=== PATIENT | female | born 1960 | race African-American/Black ===

== ENCOUNTER → 2016-12-19 | Outpatient (CLI) | payer BC ==
[~2016-12-19] MED LIST: AMLODIPINE BESY10 MG OR; CALCIUM 600 +1 EAC1 PO; CARAFATE 1 GM TA1 G1 PO; CIPROFLOXACIN500 M1 OR; CREON 10 CAPSUL1 CA1 PO; CRESTOR20 MG PO; DARVOCET-N 1001 EACH PO; DURAGESIC25 MCG/HR TRANSDERM; ESTRACE2 MG PO; FISHOIL PO; HYDROCODON-ACE1 EAC7 PO; IBUPROFEN 400400 M1 PO; LIPITOR10 MG PO; LOPRESSOR25 PO; LORTAB 5 MG/5001 TA1 PO; MACROBID 100 M100 M1 PO; MUSCLE RELAXER; NICOTINE TRANSD21 M1 TD; NORCO 5-325 TA1 EACH PO; PANCREAZE 10,51 EACH PO; PERCOCET 10-321 EACH PO; PLAVIX 75 MG TA75 M1 PO; PRAVACHOL 20 MG20 M1 PO; QUINU10 PD; QUINU10 PD PO; STEROID; VITAMIN D1000 UNI1 PO; WESTCORT TP; ZOFRAN ODT4 MG PO
== END ==
LOC: RAD 14:47
DX: Z12.31 Encounter for screening mammogram for malignant neoplasm of breast (principal)